=== PATIENT | male | born 1990 | race Caucasian/White ===

== ENCOUNTER → 2022-08-17 | Outpatient (CLI) | payer OTHER ==
[2022-08-18 02:19] LABS: Rheumatoid Factor, Qnt <10 IU/mL (0-15)
[2022-08-18 02:34] LABS: % Iron Saturation 17.48 (15.00-50.00); Total Iron Binding Capacity 420 ug/dL (228-460)
[2022-08-18 02:36] LABS: ALT 15 U/L (10-49); AST 13 U/L (14-35); African American GFR (CKD) 137.4 (60.0-200.0); Albumin 4.9 g/dL (3.8-4.9); Alkaline Phosphatase 64 U/L (41-126); BUN/Creat Ratio 14.32 Ratio (12.00-20.00); Calcium 9.6 mg/dL (8.7-10.3); Carbon Dioxide 26.7 mmol/L (20.0-27.5); Chloride 102 mmol/L (96-109); Creatine Kinase 99 U/L (35-257); Globulin 2.4 g/dL (1.6-3.3); Glucose 80 mg/dL (70-110); Iron 73 ug/dL (65-175); Non-African American GFR(CKD) 118.5 (60.0-200.0); Potassium 4.4 mmol/L (3.5-5.5); Sodium 141 mmol/L (135-145); Total Protein 7.3 g/dL (6.2-8.2)
== END | disposition home or self-care (01) ==
LOC: LABWHC1 10:53
PROVIDERS: ATTEND Physician Assistant
DX: M19.90 Unspecified osteoarthritis, unspecified site (principal); Z87.39 Personal history of other diseases of the musculoskeletal system and connective tissue; R53.1 Weakness
CPT/HCPCS: 36415; 80053; 82085; 82550; 82607; 83540; 83550; 84439; 84443; 86038; 86039; 86431

== ENCOUNTER → 2022-12-12 | Outpatient (CLI) | payer OTHER ==
--- NOTE | 2022-12-12 17:57 | P.SLEEP ---
History of Present Illness DATE: 12/12/2022 CONSULTATION/NEW PATIENT EVALUATION HISTORY OF PRESENT ILLNESS/SLEEP-WAKE EVALUATION: 32 year old gentleman had been evaluated in the sleep center for possible obstructive sleep apnea hypopnea syndrome. SLEEP SCHEDULE: Usually sleep schedule from 11 PM to 6 AM 7 days a week. FALLING ASLEEP: Patient does have problems with falling asleep, has TV set and bedroom. DURING SLEEP: Patient has mild snoring and witnessed episodes of stop breathing during the sleep. Patient usually sleeps on the back position, has episodes of choking, grinding teeth, heartburn, sweating and restless leg symptoms. Patient wakes up from sleep up to 6 times. No history of nocturia. No history of hypnogogical hallucinations, sleep paralysis, or cataplexy. DURING THE DAY/WAKE STATE: In the morning patient wake up tired, has problems with memory, concentration, irritability. [place] sleepiness scale is 3. Patient doesn't take any naps. PAST MEDICAL HISTORY: Depression, anxiety. PAST SURGICAL HISTORY: Pilonidal cyst removed. MEDICATIONS: Sertraline, cyclobenzaprine. SOCIAL HISTORY: Patient is using cannabis, alcohol consumption occasional. FAMILY HISTORY: Hypertension, anemia, diabetes. REVIEW OF SYSTEMS: Multiple awakenings from sleep, difficulties to initiate sleep. No fevers. No double vision. No recent chest pain. No shortness of breath. No abdominal pain. No bleeding episodes. No blood in urine. No seizure episodes. PHYSICAL EXAMINATION: GENERAL: A pleasant patient without any distress. VITAL SIGNS: BP 144/92 , HR 103 , RR 16 , weight 211.0 pounds, height 5 foot 6.5 inches, body mass index 33.5, temperature 98.2, oxygen saturation at room air 96% . HEENT: PERRLA, EOMI. Evaluation of oropharynx showed tongue protrudes midline, low position of soft palate Mallampati 3. NECK: Supple. No JVD. Thyroid is not palpable. 16.5 inches in circumference. LUNGS: Clear to percussion and to auscultation. Good air exchange. No wheezing or rhonchi. HEART: S1, S2 regular. No murmurs, gallops or rubs. ABDOMEN: Soft and nontender. Bowel sounds are present. No organomegaly appreci ated. EXTREMITIES: No clubbing or cyanosis. SECONDARY CONNECTOR ARMATURE: Awake, alert, and oriented x3. Cranial nerves 2 to 7 intact. There is no fasciculation or atrophy noted. No focal deficits observed. ASSESSMENT: 1. Snoring, witnessed episodes of stop breathing during the sleep, multiple awakenings from sleep, low position of soft palate Mallampati 3. Obstructive sleep apnea-hypopnea syndrome. 2. Difficulties to initiate sleep psychophysiological insomnia. 3. History of depression. 4. History of anxiety. 5 hypertension in the office. 6 . Mild obesity, BMI 33.5. PLAN: 1. Polysomnography for evaluation of patient's breathing during sleep. 2. Following plan after reading sleep study 3. Preferable position during sleep on the side. 4. No driving if patient feels any sleepiness. Patient is aware of civil and criminal liability for unsafe driving. 5. Sleep hygiene with regular sleep time for at least 7.5-8 hours. 6. Watching and losing weight. Thank you very much for referring this patient for consultation. Sincerely, Enrique Castro MD, PhD, FAASM. Diplomat of [place] [employer], Sleep Medicine Board by [place] [employer] [place] [employer] [facility] - Sleep Note Sleep Note: Temperature: Pulse Rate: Respiratory Rate: Blood Pressure: SpO2: Height: Weight: BMI: Neck Circumference:
== END ==
LOC: 3 N SLEEP 15:20
PROVIDERS: ATTEND Internal Medicine
DX: G47.33 Obstructive sleep apnea (adult) (pediatric) (principal); F51.04 Psychophysiologic insomnia; F32.A Depression, unspecified; F41.9 Anxiety disorder, unspecified; E66.9 Obesity, unspecified; I10 Essential (primary) hypertension; Z68.33 Body mass index [BMI] 33.0-33.9, adult
CPT/HCPCS: 99212

== ENCOUNTER 2023-01-21 19:38 | Outpatient (CLI) | payer OTHER | END 2023-01-22 05:20 | disposition home or self-care (01) | LOC: 3 N SLEEP 19:38 | PROVIDERS: ATTEND Internal Medicine | DX: G47.33 Obstructive sleep apnea (adult) (pediatric) (principal) | CPT/HCPCS: 95810 ==

== ENCOUNTER → 2023-08-31 | Outpatient (CLI) | payer OTHER ==
[2023-08-31 13:34] LABS: C Reactive Protein <0.30 mg/dL (0.00-0.80); Rheumatoid Factor, Qnt <15 IU/mL (0-15)
[2023-08-31 15:19] LABS: Creatine Kinase 81 U/L (35-257)
[2023-08-31 16:31] LABS: Hepatitis C IgG Antibody Nonreactive (Nonreactive)
[2023-09-02 10:22] LABS: Protein, Total 7.5 g/dL (6.2-8.2)
[2023-09-02 14:01] LABS: HLA B27 NEGATIVE
[2023-09-02 15:56] LABS: HIV 2 AB Non-Reactive (Non-Reactive); HIV AB P24 Non-Reactive (Non-Reactive); HIV P24 AG Non-Reactive (Non-Reactive)
[2023-09-03 01:16] LABS: Albumin 4.78 g/dL (3.80-4.90); Gamma Globulin 1.01 g/dL (0.70-1.50)
[2023-09-04 19:10] LABS: ANA Pattern Speckled
--- NOTE | 2023-09-05 09:03 | XR ---
EXAMINATION TYPE: XR hand complete bilateral DATE OF EXAM: 08/31/2023 8:55 AM CLINICAL INDICATION:Male, 33 years old with history of [id number], [id number], [id number], [id number], [id number]; [facility] COMPARISON: None TECHNIQUE: XR hand complete bilateral Frontal, lateral and oblique views were obtained. FINDINGS: Normal alignment of the visualized joints. No acute osseous pathology is identified. No e vidence of soft tissue swelling. IMPRESSION: No acute osseous pathology.
--- NOTE | 2023-09-05 09:04 | XR ---
EXAMINATION TYPE: XR lumbar spine 2 or 3V DATE OF EXAM: 08/31/2023 8:55 AM CLINICAL INDICATION:Male, 33 years old with history of [id number], [id number], [id number], [id number], [id number]; [facility] COMPARISON: None TECHNIQUE: XR lumbar spine 2 or 3V - Frontal, lateral and coned in L5-S1 lateral views of the spine. FINDINGS: No evidence of any acute osseous pathology. No evidence of loss of vertebral body height i s seen. There is normal alignment of the lumbar vertebral bodies. Scattered disc space narrowing. Mul tilevel marginal osteophyte formation throughout the visualized spine. There is facet joint arthropat hy throughout the spine. Scattered at least mild neural foraminal stenosis. IMPRESSION: 1. No acute fracture. 2. Mild multilevel disc degeneration.
--- NOTE | 2023-09-05 09:06 | XR ---
EXAMINATION TYPE: XR foot complete bilateral DATE OF EXAM: 08/31/2023 8:55 AM CLINICAL INDICATION:Male, 33 years old with history of [id number], [id number], [id number], [id number], [id number]; [facility] COMPARISON: None TECHNIQUE: XR foot complete bilateral examined in the AP, oblique, and lateral projections. FINDINGS: No evidence of any acute osseous pathology. No evidence of soft tissue swelling. Calcaneal Achilles enthesophyte. Multifocal degeneration changes throughout the joints of the foot with osteophyte forma tion and joint space narrowing. IMPRESSION: 1. No evidence of acute fracture. 2. Minimal degeneration changes throughout the joints of the foot.
== END | disposition home or self-care (01) ==
LOC: RADXRMAIN 08:13
PROVIDERS: ATTEND Internal Medicine Rheumatology
DX: M51.36 Other intervertebral disc degeneration, lumbar region (principal); M19.071 Primary osteoarthritis, right ankle and foot; M19.072 Primary osteoarthritis, left ankle and foot; M79.641 Pain in right hand; M79.642 Pain in left hand; M25.529 Pain in unspecified elbow; M25.519 Pain in unspecified shoulder; M54.9 Dorsalgia, unspecified; M25.559 Pain in unspecified hip
CPT/HCPCS: 72100; 82306; 82550; 83520; 84165; 84443; 85652; 86038; 86039; 86140; 86200; 86431; 86803; 86812; 87390

== ENCOUNTER → 2024-09-08 | Outpatient (CLI) | payer OTHER | END | disposition home or self-care (01) | LOC: LABWHC1 08:22 | PROVIDERS: ATTEND Psychiatry & Neurology Neurology | DX: Z53.9 Procedure and treatment not carried out, unspecified reason (principal) ==